=== PATIENT | female | born 1935 | race Caucasian/White ===

== ENCOUNTER 2020-10-01 14:30 | Outpatient (RCR) | payer MEDICARE, SELFPAY | END 2020-12-10 11:24 | disposition home or self-care (01) | LOC: HO.WCC 14:30 | PROVIDERS: PCP Internal Medicine; Visit Provider Physician Assistant | DX: Z09 Encounter for follow-up examination after completed treatment for conditions other than malignant neoplasm (principal); Z85.828 Personal history of other malignant neoplasm of skin | CPT/HCPCS: 11042; 11102; 11106; 15271; 88305; 99212; Q4187 ==

== ENCOUNTER 2022-08-06 10:12 | Outpatient (RCR) | payer MEDICARE, SELFPAY | END 2022-12-03 16:00 | disposition home or self-care (01) | LOC: HO.WCC 10:12 | PROVIDERS: PCP Internal Medicine; Visit Provider Surgery | DX: I87.312 Chronic venous hypertension (idiopathic) with ulcer of left lower extremity (principal); L97.822 Non-pressure chronic ulcer of other part of left lower leg with fat layer exposed; T81.31XA Disruption of external operation (surgical) wound, not elsewhere classified, initial encounter; C44.719 Basal cell carcinoma of skin of left lower limb, including hip; I73.89 Other specified peripheral vascular diseases; Z79.01 Long term (current) use of anticoagulants; Z79.82 Long term (current) use of aspirin; Z79.899 Other long term (current) drug therapy | CPT/HCPCS: 11042; 11045; 15271; 15275; 99212; Q4187 ==

== ENCOUNTER 2023-05-19 07:56 | Outpatient (RCR) | payer MEDICARE, SELFPAY | END 2023-06-12 16:00 | disposition home or self-care (01) | LOC: HO.WCC 07:56 | PROVIDERS: PCP Internal Medicine; Visit Provider Surgery | DX: I83.028 Varicose veins of left lower extremity with ulcer other part of lower leg (principal); L97.821 Non-pressure chronic ulcer of other part of left lower leg limited to breakdown of skin; I83.91 Asymptomatic varicose veins of right lower extremity; I48.91 Unspecified atrial fibrillation; Z96.643 Presence of artificial hip joint, bilateral; Z86.73 Personal history of transient ischemic attack (TIA), and cerebral infarction without residual deficits | CPT/HCPCS: 11042; 11045; 97597; 99212 ==

== ENCOUNTER 2025-09-25 14:15 | Outpatient (AMB) | payer MEDICARE, SELFPAY ==
--- NOTE | 2025-09-25 14:16 | AM.OFFWIN_ITS ---
Intake Vital Signs 09/25/25 14:22 Height 5 ft 7 in Weight 147 lb BMI 23.0 BP 120/86 Blood Pressure Location Lt brachial Position Sitting Pulse 77 Pulse Source Pulse Oximeter Temp 97.4 F Temp Source Oral Pulse Oximetry (%) 99 Oxygen Delivery Method Room Air Intake Visit Reasons: EP Wound lt wrist, not healing. Intake Note: pt presents with open wound to LT forearm - states she was taking a pair of pants out of the closet and caught her lt wrist on a hook 3 days ago Allergies No Known Allergies Allergy (Verified 09/25/25 14:23) Do you need a note to return to daycare/school/sports/work: No HPI HPI Comments History of Present Illness Details Patient is an 89yo F who presents to the office with a wound Located on her L forearm Occurred over the weekend She scratched her arm on a hoot She is on Warfarin She said has not stopped bleeding Did not clean with anything Pain level is 0/10 Minimal with palpation, 2/10 Review of Systems Const Denies chills and Denies fever(s) Musc Denies tingling Skin/Breast Reports wounds Neuro Denies tingling and Denies paresthesias Physical Exam Exam Exam: General: Non-toxic, NAD. Speaking full sentences. Skin: Warm dry throughout. L forearm pt has approx 2cm half [place] skin flap without active bleed or visualized FB. Non-tender to palpation Eye: EOMI Respiratory: No respiratory distress MSK: Good ROM L wrist and LUE at elbow Neurology: Alert. No aphasia or facial droop. Gait without abnormality Psych: Good mood and affect Vital Signs: Last Vital Signs Temp 97.4 F 09/25/25 14:22 Pulse 77 09/25/25 14:22 BP 120/86 09/25/25 14:22 Pulse Ox 99 09/25/25 14:22 Oxygen Delivery Method Room Air 09/25/25 14:22 BMI result Body Mass Index 23.0 Immunizations Boostrix Tdap 2.5 Lf unit-8 mcg-5 Lf/0.5 mL intramuscular syringe Performing Provider: Flower Michaels PA-C Performing Location: [facility] Administered by: Benita Pitts CMA on 09/25/25 14:45 Dose Route Admin Location Dispensed Lot Number Expiration Date [facility] Behaviour Support Teacher 0.5 mL IM Right Deltoid 0.5 mL [id number] 03/08/28 69360-929-57 [employer] Total Dispensed Waste 0.5 mL 0 % VIS Given Date VIS Provided VIS Publication Date 09/25/25 Single Vaccine 21 Eligibility Eligibility Date Funding Source Not [facility] Eligible 09/25/25 Private Assessment & Plan Assessment & Plan (1) Skin tear of left upper arm without complication: Code(s): S41.112A - Laceration without foreign body of left upper arm, initial encounter Qualifiers: Encounter type: initial encounter Qualified Code(s): S41.112A - Laceration without foreign body of left upper arm, initial encounter Plan: Patient seen and evaluated. TDAP given No sign of FB or cellulitis Verbal consent obtained. LUE forearm wound cleaned with saline by irrigation. Area dried. Tweezers used for wound edge approximation. Then 3 steri strips placed with non-adhesive dressing and then tegaderm. Pt tolerared well without complication. Discussed keeping tegaderm in place x 48 hours Good to take off bandage and keep open to air after that Steri strips to fall off in 4-7 days. Do not pick off or use Neosporin. Keep an eye out for redness, fever or pain and call office with concerns F/U with PCP. Call office with questions Patient gave verbal understanding and had no additional questions or concerns at time of discharge Orders: Orders TDaP Immunization Today Z23 - Encounter for immunization Coding Level of Care Code Est Pt Level 3 (75332) Diagnoses Skin tear of left upper arm without complication, initial encounter S41.112A Encounter type: initial encounter
[2025-09-25 14:22] VITALS: BP 120/86; PULSE 77; TEMP 36.3; O2SAT 99; BMI 23.0
--- OUTSIDE RECORDS SUMMARY | 2025-09-25 18:01 | XMS_ITS | Data Portability ---
Author Organization [place] - [facility] Address [address] [place] [id number] Care Team Providers Care Screen Machine Operator Name Role Phone CALVIN DELEON Primary Care Provider Assessment Encounter Date Assessment Date Assessment LastModified by Organization Details LastModified Time 09/27/2020 09/27/2020 Proper Personal Protective Equipment (PPE), including gloves, gown, shoe covers, eye protection and masks were donned and doffed appropriately and all equipment cleaned using approved technique with germicidal disposable wipes prior to and after care of this patient according to [facility]'s infection prevention protocols. This patient is new to and new to this provider and also new to these symptoms Overview/History : 84 yo female, VSS, afebrile, in NAD, Injury to her LLE two months ago. Seen by PCP and treated for cellulitis with Doxycycline and currently on second round of SMTZ. Exam: Non-toxic appearing, well nourished. A/Ox3, HEENT: Normal cephalic, skin intact. normal mucous membranes, no evidence of foreign objects. no evidence of bleeding or discharge, No evidence of thrush, normal appearing pharynx, non erythemic, no exudate present, Normal lymph nodes, no lymphedema or adenopathy. LS CTA bilaterally. Normal RR on RA. No use of accessory muscles. HR and rhythm regular. S1, S2. No murmur, gallop, or rub/ Normal pulses. non-pitting edema LLE, BS x4 quad. Abd soft, non-tender and non-distended. No hepatosplenomega ly. No CVA or suprapubic tenderness. Normal ROM, ambulating well around home without assistive device. Good CMS present. No rash, LLE skin dry, erythemic, warm, 3 X 2 X 0.5 cm non- healing wound on anterior surface of LLE w/weeping exudate. DDx considered, but not limited to: Cellulitis staph infection non-healing wound work-up/results: wound culture Plan/Discussion: Called her PCP's office and spoke with Dr. Gomez. She recommended to have to have patient follow up with PCP for wound care consult and INR check on Wednesday. Switch antibiotics to amoxicillin/clav ulanate to cover for Staph. Patient has been on Doxycycline, and now starting her second round of Bactrim. Patient instructed to D/C bactrim and start amoxicillin clavulanate. and I agreed. Wound is 3 X 2 X 0.5 cm, is now just two months old, evidence of cellulitis surrounding wound. Wound Culture obtained and sent to [facility] reference labs, DSG w/adaptic, 4 X 4 DSD with kerlix roll. DSG material supplied to patient. Rx., of amoxicillin Clavulanate 500 mg/ 125 mg sent to pharmacy, patient instructed to take medication twice a day w/food for seven days. Patient instructed to stop taking her Furosemide for her LLEE and continue all of her other medications. Patient states understanding and agrees with plan. In order to obtain further information and compare any laboratory results/values, I have accessed no old patient records available to help with my medical decision making today. [email or web address] Not available 09/27/2020 10:13:15 Plan of Treatment Reminders Order Date Submit Date Provider Last Modified By Organization Details Last Modified Time Details Appointments None recorded. Lab None recorded. Referral None recorded. Procedures None recorded. Surgeries None recorded. Imaging None recorded. Medication Orders amoxicilli n 500 mg-potassi um clavulanat e 125 mg tablet 2020 021 INTERFACE [id number], [address], [place], [address], 09:43:02 Patient TargetsNo targets recorded. Patient Instructions Encounter Date Encounter Id Patient Instructions Last Modified By Organization Details Last Modified Time 09/27/2020 [id number] Thank you for yo ur visit with [facility] today. You were seen today for treatment of a wound. Please seek immediate medical attention if you develop increased pain, redness, or swelling of your wound. Also, you should be evaluated if the wound becomes warm to the touch, or if there is a cloudy, yellow-brown discharge from the wound. There is always the possibility of a hidden tendon injury or foreign object in the wound. If you have problems moving your arm or leg, or if you see red streaks up the arm or leg, seek immediate medical attention. If you develop any new or worsening symptoms and need after hours care, please go to nearest ER and/or call 911. If you have additional concerns or develop a change in your condition between 8am-10pm, please call [facility] at [phone] to help navigate your care. [email or web address] Not available 09/27/2020 08:01:22 Reason for Referral None Reported. Results Created Date Observation Date Name Description Value Unit Range Abnormal Flag Note LastModifiedBy Organization Detail LastModifiedTime 09/27/1909/27/2020 cultu re, super ficia l wound specimen description SWAB LOWER LIMB Not Available [facility] (Centralized Electronic Ordering - All Locations) Patient Can Go To The Location Of Their Choice, 09/30/2020 07:41:30 09/27/1909/27/2020 cultu re, super ficia l wound special requests NONE Not Available [facility] (Centralized Electronic Ordering - All Locations) Patient Can Go To The Location Of Their Choice, 09/30/2020 07:41:30 09/27/1909/28/2020 cultu re, super ficia l wound gram stain 2+ POLYM ORPHO NUCLE AR LEUKO CYTES 4+ GRAM NEGAT KAROLINA RODS 2+ GRAM POSIT KAROLINA COCCI Not Available [facility] (Centralized Electronic Ordering - All Locations) Patient Can Go To The Location Of Their Choice, 09/30/2020 07:41:30 09/27/1909/30/2020 cultu re, super ficia l wound culture 4+ PSEUDO MONAS AERUGI NOSA abnormal Not Available [facility] (Centralized Electronic Ordering - All Locations) Patient Can Go To The Location Of Their Choice, 09/30/2020 07:41:30 09/27/1909/30/2020 cultu re, super ficia l wound report status FINAL 2020 Not Available [facility] (Centralized Electronic Ordering - All Locations) Patient Can Go To The Location Of Their Choice, 09/30/2020 07:41:30 09/27/1909/30/2020 cultu re, super ficia l wound organism ORGANI SM 4+ PSEUDO MONAS AERUGI NOSA Not Available [facility] (Centralized Electronic Ordering - All Locations) Patient Can Go To The Location Of Their Choice, 09/30/2020 07:41:30 09/27/1909/30/2020 cultu re, super ficia l wound method METHOD MIN. INHIB. CONC. (MCG/M L) Not Available [facility] (Centralized Electronic Ordering - All Locations) Patient Can Go To The Location Of Their Choice, 09/30/2020 07:41:30 09/27/1909/30/2020 cultu re, super ficia l wound cefepime CEFEPI ME SUSCEP TIBLE susceptib le Not Available [facility] (Centralized Electronic Ordering - All Locations) Patient Can Go To The Location Of Their Choice, 09/30/2020 07:41:30 09/27/1909/30/2020 cultu re, super ficia l wound ceftazidime CEFTAZ IDIME SUSCEP TIBLE susceptib le Not Available [facility] (Centralized Electronic Ordering - All Locations) Patient Can Go To The Location Of Their Choice, 09/30/2020 07:41:30 09/27/1909/30/2020 cultu re, super ficia l wound ciprofloxaci n CIPROF LOXACI N SUSCEP TIBLE susceptib le Not Available [facility] (Centralized Electronic Ordering - All Locations) Patient Can Go To The Location Of Their Choice, 09/30/2020 07:41:30 09/27/1909/30/2020 cultu re, super ficia l wound gentamicin GENTAM ICIN SUSCEP TIBLE susceptib le Not Available [facility] (Centralized Electronic Ordering - All Locations) Patient Can Go To The Location Of Their Choice, 09/30/2020 07:41:30 09/27/1909/30/2020 cultu re, super ficia l wound levofloxacin LEVOFL OXACIN SUSCEP TIBLE susceptib le Not Available [facility] (Centralized Electronic Ordering - All Locations) Patient Can Go To The Location Of Their Choice, [id number] 09/30/2020 07:41:30 09/27/1909/30/2020 cultu re, super ficia l wound meropenem MEROPE NEM SUSCEP TIBLE susceptib le Not Available [facility] (Centralized Electronic Ordering - All Locations) Patient Can Go To The Location Of Their Choice, [id number] 09/30/2020 07:41:30 09/27/1909/30/2020 cultu re, super ficia l wound piperacillin /tazobactam PIPERA CILLIN /TAZOB AC SUSCEP TIBLE susceptib le Not Available [facility] (Centralized Electronic Ordering - All Locations) Patient Can Go To The Location Of Their Choice, [id number] 09/30/2020 07:41:30 Result Notes None recorded. Procedures Surgical History Date Name Laterality Status Provider Name and Address Organization Details Recorded Time Total knee arthroplasty completed HANNAH HOFF NP [address] [place] [address], [phone], [place] - [facility] 09/27/2020 08:52:55 Imaging Results None recorded. Procedure Notes None recorded. Medical Equipment None Reported. Allergies No known drug allergies Medications Name Sig Start Date Stop Date Status Note LastModified by Organization Details LastModified Time furosemide 40 mg tablet TAKE 1 TABLET BY MOUTH EVERY DAY NEEDED FOR EDEMA active Not Available Not Available No t Available sulfamethox azole 800 mg-trimetho prim 160 mg tablet TAKE 1 TABLET BY MOUTH TWICE A DAY FOR 7 DAYS active Not Available Not Available No t Available cephalexin 500 mg capsule TAKE 2 CAPSULES BY MOUTH 45 MINUTES BEFORE PROCEDURE 09/27 completed Not Available Not Available Not Available simvastatin 20 mg tablet Take 1 tablet every day by oral route. active Not Available Not Available No t Available hydrochloro thiazide 25 mg tablet Take 1 tablet every day by oral route. active Not Available Not Available No t Available mupirocin 2 % topical ointment APPLY TO LEFT LEG WOUND TOPICALLY DAILY NEEDED active Not Available Not Available No t Available atenolol 50 mg tablet Take 1 tablet every day by oral route. active Not Available Not Available No t Available amoxicillin 500 mg-potassiu m clavulanate 125 mg tablet TAKE 1 TABLET BY MOUTH EVERY 12 HOURS FOR 7 DAYS active Not Available Not Available No t Available aspirin active Not Available Not Avail able Not Available atenolol 09/27 completed Not Available Not Available Not Available trazodone active Not Available Not Evita ilable Not Available Fluzone High-Dose Quad (PF) 240 mcg/0.7 mL IM syringe [facility] active Not Available Not Available No t Available Vitals Date Recorded Respiratory rate Body temperature Heart rate Oxygen saturation Systolic And Diastolic Provider Name and Address Organization Details Last Updated DateTime 20 /min 97.7 [degF] 95 /min 99 % 138/64 mm[Hg] Not Available [facility] 08:49:41 Social History Question Answer Notes LastModified by Organizat ion Details LastModified Time Tobacco Smoking Status Never Smoker HANNAH HOFF NP [address], [place], [address], [place] [facility] 09/27/2020 08:51:22 Do You Have An Advance Directive? Yes [email or web address] Information not available 09/27/2020 What Is Your Code Status? Full Code [email or web address] Information not available 09/27/2020 Within The Past 12 Months, Has It Happened That The Food You Bought Just Didn't Last And You Didn't Have Money To Get More. No [email or web address] Information not available 09/27/2020 Within The Past 12 Months, Have You Worried That Your Food Would Run Out Before You Got Money To Buy More. No [email or web address] Information not available 09/27/2020 Fall Risk: Do You Feel Unsteady When Standing Or Walking? No [email or web address] Information not available 09/27/2020 We Know That How And When People Interact With Friends And Family Can Be Very Different From Person To Person. How Often Do You Have The Opportunity To See Or Talk To People That You Care About And Feel Close To? (Ex: Talking To Friends On The Phone Or Visiting Friends Or Family Or Going To Judaism Or Club Meetings) 5 Or More Times Per Week Information not available 09/27/2020 Excessive Alcohol Or Drug Use Yes Alcohol On Occasion [email or web address] Information not available 09/27/2020 We Know From Many Of Our Patients That Covering All Of Their Costs Can Be Difficult At Times. This Can Cause Stress And Impact Health. In The Past Year, Have You Been Unable To Get Any Of The Following When It Was Really Needed? No [email or web address] Information not available 09/27/2020 What Is Your Housing Situation Today? I Have Housing [email or web address] Information not available 09/27/2020 Would You Like Help Connecting To Resources? None [email or web address] Information not available 09/27/2020 Sex: Unknown Functional Status None recorded. Mental Status None recorded. Family History Relationship Description Onset Age of this Age Resolved Age Notes LastModified by Organization Details LastModified Time Father Malignant neoplasm of brain [email or web address] Not available 2020 08:50:55 Mother Cerebrovascu lar accident [email or web address] Not available 09/2020 08:51:14 Medical History Condition Response Coronary Artery Disease COPD N Cancer Y Stroke Y High Cholesterol N Kidney Disease N Diabetes N Asthma N Pulmonary Embolism N Hypertension Y Gynecological HistoryNo gynecological history recorded. Obstetrics History GPAL:G 0 P 0 0 0 0 Immunizations Vaccine Type Date Status Note Provider Nam e and Address Organization Details Recorded Time Influenza, split virus, quadrivalent, preservative 0 completed HANNAH HOFF NP [address] [place], [address], [place] [facility] 09/27/2020 08:24:25 Past Encounters Encounter ID Performer Location Encounter Start Date Encounter Closed Date Diagnosis/Indication Diagnosis SNOMED-CT Code Diagnosis ICD10 Code Diagnosis IMO Codes Diagnosis Note [id number] HANNAH HOFF NP [facility] [address] [place] [address] 09/27/2020 08:00:04 09/30/2020 17:14:08 Cellulitis of lower limb [id number] L03.119 Health Concerns Section Related Observation LastModified by Organization Detai ls LastModified Time None Recorded Concern Status LastModified by Organization Details LastModified Time None Recorded Advance Directives Directive Y: Payers Insurance Date Sequence Insurance Name Policy Number Policy Graff Covered Member ID Graff Member ID Guarantor Name 10/02/2020 1 [place] [employer] Patricia Ochoa Topor [id number] Patricia Topor 10/02/2020 2 [place] Patricia Topor [id number] Patricia Topor 09/27/2020 1 *SELF PAY* Patricia Topor [id number] Patricia Knowles Notes Date Note Type Note Provider Name and Address Organization Details Recorded Time 09/27/2020 text/html 84 yo female with PMH of states she was on a ladder and her Left leg mitchell got caught on a shelve. She has been to her PCP for evaluation 3 times. She is requesting her wound be evaluated. States she taking second round of sulfur antibiotics for cellulitis. Endorses intermittent shooting, buring pain at 5/10. HANNAH HOFF, JOSELO [address], [place], [address], [place] - [facility] 09/27/2020 10:13:22 OBGyn Episode No OBEpisode recorded.
--- OUTSIDE RECORDS SUMMARY | 2025-09-25 18:01 | XMS_ITS | Continuity of Care Document ---
Author Organization [place] - [facility], [facility] Address [address] [place] [address] Care Team Providers Care Physicist [place] Name Role Phone CALVIN DELEON Primary Care Provider [phone] Assessment No assessment recorded. Plan of Treatment Reminders Order Date Submit Date Provider Last Modified By Organization Details Last Modified Time Details Appointments Establish ed 30 2025 12:00P M MAGALY Tian MD Not available Not available Not available Lab None recorded. Referral None recorded. Procedures None recorded. Surgeries None recorded. Imaging None recorded. Medication Orders None recorded. Patient TargetsNo targets recorded. Patient InstructionsNo instructions recorded. Reason for Referral None Reported. 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 Tongue lesion NOS; Location: left CMS Risk: moderate risk CMS Treatment : new problem (to examiner) : additiona l workup planned C ondition: uncontrol led Note: Date Diagnosed : 4 1:11 PM (235.1) Not Available [facility] 4 02:43:19 Impacted cerumen of bilateral ears 42827569146 13564 Active 2022 Impacted cerumen, bilateral ; Note: Date Diagnosed : 3 1:29 PM (H61.23) MAGALY DENNIS MD [address] [place] [address], [facility] [place], [address] , [place] - [facility] 5 13:29:02 Sensorine ural hearing loss of bilateral ears 281974142 Active 2022 Sensorine ural hearing loss, bilateral ; Note: Date Diagnosed : 3 1:29 PM (H90.3) Not Available [facility] 4 02:43:15 Impacted cerumen in left ear 57151281793 55574 Active 2023 MAGALY DENNIS MD [address], [facility] [place], [address] , [place] - [facility] [place] 4 14:00:44 Impacted cerumen in right ear 32197700055 13993 Active 2023 MAGALY DENNIS MD [address], [facility] [place], [address] , [place] [facility] [place] 4 14:00:44 Foreign body in left ear 35553663793 538551 Active 2024 MAGALY DENNIS MD 100 [facility] [place] [address], [facility] [place], [address] , [place] - [facility] 5 13:48:34 Problem Notes None recorded. Procedures Surgical History Date Name Laterality Status Provider Name and Address Organization Details Recorded Time 5 Cerumen removal with microscope bilateral completed MAGALY DENNIS MD 100 [facility] [place],[address], [address], [facility] - [facility] 09/07/2025 13:47:11 5 Removal of foreign body from ear canal completed MAGALY DENNIS MD 100 [facility] [place],[address], [address], [facility] - [facility] 09/07/2025 13:48:21 5 Cerumen removal with microscope bilateral completed MAGALY DENNIS MD [address] [place],[address], [address], [facility] - [facility] 03/06/2025 13:28:42 4 Cerumen removal with microscope bilateral completed MAGALY DENNIS MD [address] [place],[address] [place] [address], [address], [place] - [facility] 02/24/2024 14:00:55 Imaging Results None recorded. Procedure Notes None recorded. Medical Equipment None Reported. Medications Name Sig Start Date Stop Date Status Note LastModified by Organization Details LastModified Time warfarin 10 mg tablet 2013 active Medication ID: 7638 Brand Name: warfarin S end Method: E-Prescrib ed Subs Allowed: subs OK Medicat ionGeneric Name: warfarin Not Available Not Available Not Available simvastatin 20 mg tablet 2013 active Medication ID: 7637 Brand Name: simvastati n Send Method: E-Prescrib ed Subs Allowed: subs OK Medicat ionGeneric Name: simvastati n Not Available Not Available Not Available Calcium-600 600 mg (as calcium carbonate 1,500 mg) tablet 2013 active Medication ID: 7640 Brand Name: Calcium 600 Send Method: E-Prescrib ed Subs Allowed: subs OK Medicat ionGeneric Name: Calcium 600 Not Available Not Available Not Available hydrochloro thiazide 25 mg tablet 1 tablet by mouth 2013 active Medication ID: 7641 Durat ion Value: 60 Brand Name: hydrochlor othiazide Send Method: E-Prescrib ed Subs Allowed: subs [place] Medicat ionGeneric Name: hydrochlor othiazide Not Available Not Available Not Available multivitami n capsule 2013 active Medication ID: 7639 Brand Name: multivitam in Send Method: E-Prescrib ed Subs Allowed: subs [place] Medicat ionGeneric Name: multivitam in Not Available Not Available Not Available atenolol 50 mg tablet 2013 active Medication ID: 7642 Brand Name: atenolol S end Method: E-Prescrib ed Subs Allowed: subs OK Medicat ionGeneric Name: atenolol Not Available Not Available Not Available Vitals Date Recorded Body height Body mass index (BMI) Body weight Provider Name and Address Organization Details Last Updated DateTime 09/07/2025 167.64 cm 23.4 kg/m2 71385.89 g Ирина Kemp [place] - [facility] 09/07/2025 13:07:17 Social History None recorded. Functional Status None recorded. Mental Status None recorded. Family History Nothing Reported. Medical History No medical history recorded. Gynecological HistoryNo gynecological history recorded. Obstetrics History GPAL:G 0 P 0 0 0 0 Past Encounters Encounter ID Performer Location Encounter Start Date Encounter Closed Date Diagnosis/Indication Diagnosis SNOMED-CT Code Diagnosis ICD10 Code Diagnosis IMO Codes Diagnosis Note [id number] MAGALY DENNIS MD [facility] [address] [place] [address] 09/07/2025 13:02:11 09/07/2025 15:15:20 Impacted cerumen of bilateral ears 6745253949 892893 H61.23 [id number] Recurrent Cerumen Impactions : Ears were meticulous ly cleaned bilaterall y today with fine pics and suction. Patient is encouraged to avoid Q-tips in his ears relative to packing the wax in tighter. Yearly visits or as needed are recommende d. Foreign sarah dy in left ear [id number] 2690224 T16.2XXA [id number] An incidental foreign body was found in the left ear which was her hearing aid dome which was removed. Her tympanic membrane was intact and there is no sign of infection. Health Concerns Section Related Observation LastModified by Organization Detai ls LastModified Time None Recorded Concern Status LastModified by Organization Details LastModified Time None Recorded Payers Encounter Date Sequence Insurance Name Policy Number Policy Graff Covered Member ID Graff Member ID Guarantor Name 09/07/2025 2 [place] [id number] Patricia Ochoa Topor [id number] Patricia Ochoa Topor 09/07/2025 1 [place] [employer] Patricia Ochoa Topor [id number] Patricia Ochoa Topor Notes Date Note Type Note Provider Name and Address Organization Details Recorded Time 09/07/2025 text/html ROS as noted in the HPI She presents for for aural fullness. She reports that is on both sides. She is using her hearing aids with benefit. MAGALY DENNIS MD [address] [place] [address], [address], [facility] - [facility] 09/07/2025 13:50:08 OBGyn Episode No OBEpisode recorded.
--- OUTSIDE RECORDS SUMMARY | 2025-09-25 18:01 | XMS_ITS | Data Portability ---
Author Organization [place] - [facility], Allergy Address [address] [place] [address] Care Team Providers Care Leather Sponger Name Role Phone CALVIN DELEON Primary Care Provider Assessment No assessment recorded. Plan of Treatment [...] instructions recorded. Reason for Referral None Reported. Results Created Date Observation Date Name Description Value Unit Range Abnormal Flag Note LastModifiedBy Organization Detail LastModifiedTime 05/17/2009/21/2023 imagi ng/di emelios tic resul t No observ ation record ed. [email or web address] Not Available 20:39:38 05/17/20 24 09/29/2023 audio gram No observ ation record ed. [email or web address] Available 20:39:47 05/17/20 24 10/11/2023 audio gram No observ ation record ed. [email or web address] Not Available 20:39:48 05/17/20 24 10/29/2023 audio gram No observ ation record ed. [email or web address] Available 20:39:51 05/17/20 24 12/03/2023 audio gram No observ ation record ed. [email or web address] Available 20:40:01 05/17/20 24 09/21/2023 audio gram No observ ation record ed. [email or web address] Not Available 20:40:17 05/17/20 24 09/24/2023 audio gram No observ ation record ed. [email or web address] Not Available 20:40:21 Result Notes None recorded. Problems Name Problem SNOMED Code Status Onset Date Resolution Date Notes Provider Name and Address Organization Details Recorded Time Neoplasm of uncertain behavior of lip, oral cavity and pharynx 016807229 Active 2013 Tongue lesion NOS; Location: left CMS Risk: moderate risk CMS Treatment : new problem (to examiner) : additiona l workup planned C ondition: uncontrol led Note: Date Diagnosed : 4 1:11 PM (235.1) Not Available [facility] 4 02:43:19 Impacted cerumen of bilateral ears 02985347819 03542 Active 2022 Impacted cerumen, bilateral ; Note: Date Diagnosed : 3 1:29 PM (H61.23) MAGALY DENNIS MD 100 [facility], [place], [address] , [place] - [facility] 5 13:29:02 Sensorine ural hearing loss of bilateral ears 394900283 Active 2022 Sensorine ural hearing loss, bilateral ; Note: Date Diagnosed : 3 1:29 PM (H90.3) Not Available [facility] 4 02:43:15 Impacted cerumen in left ear 15265415737 24615 Active 2023 MAGALY DENNIS MD 100 [facility], [place], [address] , [place] - [facility] [place] 4 14:00:44 Impacted cerumen in right ear 14963610117 24407 Active 2023 MAGALY DENNIS MD 100 [facility], [place], [address] , [place] - [facility] [place] 4 14:00:44 Foreign body in left ear 62767286687 350501 Active 2024 MAGALY DENNIS MD 100 [facility] [place] [address], [place], [address] , [facility] - [facility] 5 13:48:34 Problem Notes None recorded. Procedures Surgical History Date Name Laterality Status Provider Name and Address Organization Details Recorded Time 5 Cerumen removal with microscope bilateral completed MAGALY DENNIS MD 100 [facility] [place],[address], [address], [facility] - [facility] [place] 09/07/2025 13:47:11 5 Removal of foreign body from ear canal completed MAGALY DENNIS MD 100 [facility] [place],[address], [address], [facility] - [facility] 09/07/2025 13:48:21 5 Cerumen removal with microscope bilateral completed MAGALY DENNIS MD 100 [facility] [place],[address], [address], [facility] - [facility] 03/06/2025 13:28:42 4 Cerumen removal with microscope bilateral completed MAGALY DENNIS MD 100 [facility] [place],[address], [address], [facility] - [facility] 02/24/2024 14:00:55 Imaging Results None recorded. [...] and Address Organization Details Last Updated DateTime 03/06/2025 167.64 cm 23.4 kg/m2 86994.89 g Valdez Borrero [place] - [facility] 03/06/2025 13:18:00 Date Recorded Body height Body mass index (BMI) Body weight Provider Name and Address Organization Details Last Updated DateTime 08/16/2024 167.64 cm 23.4 kg/m2 34538.89 g Valdez Borrero [facility] 08/16/2024 15:22:05 Date Recorded Body height Body mass index (BMI) Body weight Provider Name and Address Organization Details Last Updated DateTime 09/07/2025 167.64 cm 23.4 kg/m2 94954.89 g Ирина Kemp [facility] 09/07/2025 13:07:17 Social History None recorded. Functional Status None recorded. Mental Status None recorded. Family History Nothing Reported. Medical History No medical history recorded. Gynecological HistoryNo gynecological history recorded. Obstetrics History GPAL:G 0 P 0 0 0 0 Past Encounters Encounter ID Performer Location Encounter Start Date Encounter Closed Date Diagnosis/Indication Diagnosis SNOMED-CT Code Diagnosis ICD10 Code Diagnosis IMO Codes Diagnosis Note [id number] MAGALY DENNIS MD [facility] of [address] [address] 02/24/2024 13:38:27 02/24/2024 14:09:27 Impacted cerumen of bilateral ears [id number] 677919 H61.23 [id number] EVIE SCHMIDT [place] 100 [facility] ite 100 [facility] [place] [address] 02/25/2024 09:07:42 03/17/2024 08:55:33 Sensorineural hearing loss of bilateral ears 611318842 H90.3 [id number] EVIE SCHMIDT [facility] of [address] [place] [address] 07/24/2024 10:34:49 07/24/2024 15:36:21 Sensorineural hearing loss of bilateral ears 666863180 H90.3 [id number] MAGALY DENNIS MD [facility] [place] [address] [place] [address] 08/16/2024 14:56:15 08/16/2024 15:31:11 Impacted cerumen in left ear 5428316781 990050 H61.22 [id number] MAGALY DENNIS MD [facility] [place] [address] [place] [address] 03/06/2025 13:13:35 03/06/2025 13:30:09 Impacted cerumen of bilateral ears 1206254460 675950 H61.23 [id number] Recurrent Cerumen Impactions : Ears were meticulous ly cleaned bilaterall y today with fine pics and suction. Patient is encouraged to avoid Q-tips in his ears relative to packing the wax in tighter. Yearly visits or as needed are ezio romano [id number] MAGALY DENNIS MD [facility] [place] [address] [place] [address] 09/07/2025 13:02:11 09/07/2025 15:15:20 Impacted cerumen of bilateral ears 3893307117 660458 H61.23 [id number] Recurrent Cerumen Impactions : Ears were meticulous ly cleaned bilaterall y today with fine pics and suction. Patient is encouraged to avoid Q-tips in his ears relative to packing the wax in tighter. Yearly visits or as needed are recommende d. Foreign sarah dy in left ear [id number] 8403771 T16.2XXA [id number] An incidental foreign body was found in the left ear which was her hearing aid dome which was removed. Her tympanic membrane was intact and there is no sign of infection. Health Concerns Section Related Observation LastModified by Organization Detai ls LastModified Time None Recorded Concern Status LastModified by Organization Details LastModified Time None Recorded Advance Directives Directive None Recorded Payers Insurance Date Sequence Insurance Name Policy Number Policy Graff Covered Member ID Graff Member ID Guarantor Name 09/11/2025 2 [place] [id number] Patricia Ochoa Topor [id number] Patricia Ochoa Topor 09/07/2025 1 [place] [employer] Patricia Ochoa Topor [id number] Patricia Don Topor Notes Date Note Type Note Provider Name and Address Organization Details Recorded Time 02/25/2024 text/html C/o not hearing out the right aid for ~ 2wks. I have been out for a week so there was some delay on my end getting back to her. She had her ears cleaned yesterday by RE although she reports that were not occluded. Visual inspection of aids revealed no blockages with cap dome or cerustops. Replaced the bus aide on the right and now it is functioning correctly again. I emailed her so she will have another way to reach me. She will call as needed. VERONIQUE ROSARIO, AUD [address], [address], [facility] - [facility] 02/25/2024 09:41:16 07/24/2024 text/html C/o not hearing well. I think the issue is that the cap domes are getting blocked. I don't think it's the cerustops. I replaced the cerustops and cap domes. I gave her brushes to clean the domes and encouraged her to do that regularly. I turned the aids up a little as well. She is still set at 80%. She will call or email if she continues to notice issues. VERONIQUE ROSARIO, AUD [address] [place], [address], [facility] - [facility] 07/24/2024 10:44:12 08/16/2024 text/html delete encounter MAGALY DENNIS MD 100 [facility],[address], [address], [facility] 12/11/2024 12:36:39 03/06/2025 text/html ROS as noted in the HPI She presents for cerumen removal. No current problems with her ears. 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 MAGALY DENNIS MD 100 [facility],[address], [address], [facility] 03/06/2025 13:29:51 09/07/2025 text/html ROS as noted in the HPI She presents for for aural fullness. She reports that is on both sides. She is using her hearing aids with benefit. MAGALY DENNIS MD 100 [facility],[address], [address], [facility] 09/07/2025 13:50:08 OBGyn Episode No OBEpisode recorded.
--- OUTSIDE RECORDS SUMMARY | 2025-09-25 18:01 | XMS_ITS | Patient Health Record ---
Author Organization [facility] Vahid Hilario Address [address] [place] [address] Care Team Providers Care High Pressure Boiler Operator Name Role Phone Joe Kim MD Primary Care Provider Kim Rodas Unavailable [phone] Dany Tierney Unavailable [phone] Allergies No Known Allergies Reason For Referral No Information Medications Medication SIG (Take, Route, Fr equency, Duration) Notes Start Date End Date Status Vitamin D Active Calcium 600 MG 1 tablet with meals Orally Twice a day Active Vitamin A Active Biotin 11/12/2023 Active Vitamin D3 Active traZODone HCl 50 MG Oral; Duration: 90 Days Active Multivitamin - 1 tablet Orally Once a day; Duration: 30 day(s) 11/12/2023 Active Warfarin Sodium 5 MG 1 tablet Orally Onc e a day; Duration: 30 day(s) 11/12/2023 Active Simvastatin 20 MG Oral; Duration: 90 Days Active Aspirin 81 MG 1 tablet Orally Once a day; Duration: 30 day(s) 11/12/2023 Active Lasix 40 MG 1 tablet Orally Once a day; Duration: 30 day(s) 11/12/2023 Active Atenolol 50 MG Oral; Duration: 90 Days Active Immunizations Vaccine Route Administration Date Status Comme nts Influenza Unknown 06/27/2024 Administered Influenza Unknown 06/27/2025 Administered Social History Tobacco Use: Social History Observation Description Date Details (start date - stop date) Never Smoker NA - NA Tobacco use other than smoking: Question Answer Notes Are you an other tobacco user? No Tobacco Control (Standard) Question Answer Notes Tobacco use: Nonsmoker Additional Findings: Tobacco non-user Current no nsmoker Problems Problem Type SNOMED Code ICD Code Onset Dates Problem Status W/U Status Risk Notes Problem Acquired hallux valgus (30151390) Hallux valgus (acquired), left foot (M20.12) Active confirmed Problem Bilateral atherosclerosis of arteries of lower limbs (disorder) (72295956298649219 ) Unspecified atherosclerosis of [place] arteries of extremities, bilateral legs (I70.203) Active confirmed Problem Acquired hallux valgus (48275775) Hallux valgus (acquired), right foot (M20.11) Active confirmed Problem Acquired hammer toe of right foot (8866109080669065) Other hammer toe(s) (acquired), right foot (M20.41) Active confirmed Problem Acquired hammer toe of left foot (0220782547110004) Other hammer toe(s) (acquired), left foot (M20.42) Active confirmed Problem Bilateral atherosclerosis of arteries of lower limbs (disorder) (75800731703965070 ) Atherosclerosis of [place] artery of both lower extremities, with unspecified presence of clinical manifestation (I70.203) Active confirmed Q7(A), Q8(2B), Q9(1B,2 C) Vital Signs Blood pressure diastolic 67 mm Hg 07/26/2025 Height 5 ft 7 in in 07/26/2025 Blood pressure systolic 124 mm Hg 07/26/2025 Weight 145 lbs 07/26/2025 BMI 22.71 kg/m2 07/26/2025 Procedures Procedure Date Ordered Date Performed Result Body Sit e 73066-TTITSCO NAIL, 6 OR MORE 10/11/2024 N/A Encounters Encounter Location Date Provider Diagnosis [facility] [address] [address] 10/11/2024 Kim Shaffer Atherosclerosis of [place] artery of both lower extremities, with unspecified presence of clinical manifestation I70.203 ; Tinea unguium B35.1 ; Pain in right toe(s) M79.674 and Pain in left toe(s) M79.[facility] [address] 12/20/2024 Tierney Saenz Atherosclerosis of [place] artery of both lower extremities, with unspecified presence of clinical manifestation I70.203 ; Tinea unguium B35.1 ; Pain in right toe(s) M79.674 and Pain in left toe(s) M79.[address] [address] 02/21/2025 Kim Shaffer Atherosclerosis of [place] artery of both lower extremities, with unspecified presence of clinical manifestation I70.203 ; Tinea unguium B35.1 ; Pain in right toe(s) M79.674 and Pain in left toe(s) M79.[address] [address] 05/07/2025 Kim Shaffer Atherosclerosis of [place] artery of both lower extremities, with unspecified presence of clinical manifestation I70.203 ; Tinea unguium B35.1 ; Pain in right toe(s) M79.674 and Pain in left toe(s) M79.[address] [address] 07/26/2025 Kim Shaffer Atherosclerosis of [place] artery of both lower extremities, with unspecified presence of clinical manifestation I70.203 ; Tinea unguium B35.1 ; Pain in right toe(s) M79.674 and Pain in left toe(s) M79.675 Assessments Encounter Date Diagnosis (ICD Code) Assessment Notes Treatment Notes Treatment Clinical Notes Section Notes 10/11/2024 Atherosclerosis of [place] artery of both lower extremities, with unspecified presence of clinical manifestation (ICD-10 - I70.203) Q7(A), Q8(2B), Q9(1B,2C) 12/20/2024 Atherosclerosis of [place] artery of both lower extremities, with unspecified presence of clinical manifestation (ICD-10 - I70.203) Q7(A), Q8(2B), Q9(1B,2C) 02/21/2025 Atherosclerosis of [place] artery of both lower extremities, with unspecified presence of clinical manifestation (ICD-10 - I70.203) Q7(A), Q8(2B), Q9(1B,2C) 05/07/2025 Atherosclerosis of [place] artery of both lower extremities, with unspecified presence of clinical manifestation (ICD-10 - I70.203) Q7(A), Q8(2B), Q9(1B,2C) 07/26/2025 Atherosclerosis of [place] artery of both lower extremities, with unspecified presence of clinical manifestation (ICD-10 - I70.203) Q7(A), Q8(2B), Q9(1B,2C) 07/26/2025 Tinea unguium (ICD-10 - B35.1) 05/07/2025 Tinea unguium (ICD-10 - B35.1) 02/21/2025 Tinea unguium (ICD-10 - B35.1) 12/20/2024 Tinea unguium (ICD-10 - B35.1) 10/11/2024 Tinea unguium (ICD-10 - B35.1) 10/11/2024 Pain in right toe(s) (ICD-10 - M79.674) 12/20/2024 Pain in right toe(s) (ICD-10 - M79.674) 02/21/2025 Pain in right toe(s) (ICD-10 - M79.674) 05/07/2025 Pain in right toe(s) (ICD-10 - M79.674) 07/26/2025 Pain in right toe(s) (ICD-10 - M79.674) 02/21/2025 Pain in left toe(s) (ICD-10 - M79.675) 05/07/2025 Pain in left toe(s) (ICD-10 - M79.675) 07/26/2025 Pain in left toe(s) (ICD-10 - M79.675) 12/20/2024 Pain in left toe(s) (ICD-10 - M79.675) 10/11/2024 Pain in left toe(s) (ICD-10 - M79.675) Plan Of Treatment Pending Test Test Name Order Date [id number] NAIL, 6 OR MORE 08/10/2024 [id number] NAIL, 6 OR MORE 10/11/2024 81085-[id number] SKIN LESIONS, OVER 4 11/22/19 24 [id number]-XEPV SKIN LESIONS, OVER 4 02/14/20 [id number] SKIN LESIONS, 2 TO 4 08/10/20 Next Appt Details Provider Name:Kim byrd, 10/24/2025 03:45:00 PM, [address] [facility], [place], [address], Insurance Providers Payer Name Payer Address Payer Phone Subscriber Number Group Number Insured Name Patient Relationship to Insured Coverage Start Date Coverage End Date Medicare National [employer] [address] [place] [address] [phone] [id number] ToporPatricia Self - patient is the insured [employer] [address] [place] [address] [id number] TopoPatricia mayer Self - patient is the insured Medical (General) History Medical History History ICD Code Arthritis Cancer Cataracts covid-19 High blood pressure Polio Stroke Measles Mumps Chicken pox Joint implants/screws A fib Mitral valve prolapse Surgical History Surgery Date(Month/Year) left hip replacement 2020 right hip replacement 2022 right knee replacement 2003
== END 2025-09-25 14:54 | disposition home or self-care (01) ==
PROVIDERS: Visit Provider Physician Assistant
DX: Z23 Encounter for immunization (principal); S41.112A Laceration without foreign body of left upper arm, initial encounter

== ENCOUNTER → 2025-09-25 14:15 | Outpatient (BNVA) | payer MEDICARE, SELFPAY | PROVIDERS: Visit Provider Physician Assistant | DX: S41.112A Laceration without foreign body of left upper arm, initial encounter (principal); Z23 Encounter for immunization | CPT/HCPCS: 90471; 90715; 99212 ==